=== PATIENT | female | born 1950 | race Caucasian/White ===

== ENCOUNTER → 2017-06-16 | Outpatient (CLI) | payer OTHER ==
[~2017-06-16] MED LIST: ATEN25TA PO; ATOR10TA9 PO; BACLOFEN; BACLOFEN PUMP; CARI350T PO; CHOLESTEROL PILL; CLONIDINE; CLONIDINE PUMP; DILAUDID; DILAUDID PUMP; LISI40TA PO; OXYC-307 PO; OXYC5TAB2 PO
== END | disposition home or self-care (01) ==
LOC: CFH 16:04
PROVIDERS: ATTEND Nurse Practitioner Family
DX: J44.9 Chronic obstructive pulmonary disease, unspecified (principal); M31.30 Wegener's granulomatosis without renal involvement; J45.40 Moderate persistent asthma, uncomplicated
CPT/HCPCS: 71046

== ENCOUNTER → 2018-07-12 | Outpatient (CLI) | payer MEDICARE ==
[2018-07-12 09:06] LABS: BASOPHILS # (AUTO) 0.05 x10^3/uL (0-0.1); BASOPHILS % (AUTO) 1 % (0-1); EOSINOPHILS % (AUTO) 6 % (1-7); LYMPHOCYTES # (AUTO) 1.65 x10^3/uL (1-3.4); LYMPHOCYTES % (AUTO) 26 % (22-44); MD NO; MEAN CORPUSCULAR HEMOGLOBIN 29.1 pg (27.0-34.8); MEAN CORPUSCULAR HGB CONC 32.7 g/dL (32.4-35.8); MEAN CORPUSCULAR VOLUME 88.9 fL (80-100); MEAN PLATELET VOLUME 7.1 fL (7.4-10.4); MONOCYTES # (AUTO) 0.39 x10^3/uL (0.2-0.8); MONOCYTES % (AUTO) 6 % (2-9); NEUTROPHILS % (AUTO) 62 % (42-75); PLATELET COUNT 336 x10^3/uL (130-400); RED BLOOD COUNT 4.55 x10^6/uL (3.82-5.3); RED CELL DISTRIBUTION WIDTH 13.3 % (9.6-15.2)
[2018-07-12 09:17] LABS: ALANINE AMINOTRANSFERASE 18 U/L (12-78); ALBUMIN 3.6 g/dL (3.4-5.0); ANION GAP 5 mmol/L (5-15); CALCIUM 8.8 mg/dL (8.5-10.1); CHLORIDE 109 mmol/L (98-107); CREATININE 0.96 mg/dL (0.55-1.02)
[2018-07-12 09:19] LABS: ALKALINE PHOSPHATASE 114 U/L (45-117); BILIRUBIN,TOTAL 0.6 mg/dL (0.2-1.0); TOTAL PROTEIN 8.3 g/dL (6.4-8.2)
== END | disposition home or self-care (01) ==
LOC: LAB 08:46
PROVIDERS: ATTEND Nurse Practitioner Family
DX: Z01.810 Encounter for preprocedural cardiovascular examination (principal); Z01.812 Encounter for preprocedural laboratory examination; I44.0 Atrioventricular block, first degree; I21.9 Acute myocardial infarction, unspecified
CPT/HCPCS: 36415; 80053; 85025; 93005

== ENCOUNTER 2020-10-22 16:17 | Emergency (ER) | payer MEDICARE ==
[~2020-10-22] VITALS: Ht 172.7 cm; Wt 75.7 kg
[~2020-10-22 16:17] MED LIST changes: -LISI40TA PO; +LISI40TA9 PO; -OXYC-307 PO; +OXYC-380 PO
[2020-10-22] MEDS ORDERED: [UNRECOGNIZED DRUG - REMARK] PO (16:50)
--- NOTE | 2020-10-22 17:02 | NUR ---
PT SITTING UP IN BED, TALKING WITH FRIEND. NAD NOTED AT THIS TIME. NO PAIN NOTED UNLESS PT TAKES A DEEP BREATH, THEN INCREASES TO 4/10. AWAITING ERMD EVAL.
--- NOTE | 2020-10-22 18:01 | NUR ---
PT SITTING UP IN BED WATCHING TELEVISION. NAD NOTED AT THIS TIME. SIDE RAIL UP, CALL LIGHT IN REACH.
[2020-10-22 18:14] LABS: BASOPHILS % (AUTO) 1 % (0-1); EOSINOPHILS % (AUTO) 5 % (1-7); LYMPHOCYTES % (AUTO) 26 % (22-44); MEAN CORPUSCULAR HEMOGLOBIN 29.4 pg (27.0-34.8); MEAN CORPUSCULAR HGB CONC 33.6 g/dL (32.4-35.8); MEAN PLATELET VOLUME 7.8 fL (7.4-10.4); MONOCYTES % (AUTO) 9 % (2-9); NEUTROPHILS % (AUTO) 59 % (42-75); PLATELET COUNT 267 x10^3/uL (130-400); RED BLOOD COUNT 4.28 x10^6/uL (3.82-5.3); RED CELL DISTRIBUTION WIDTH 14.1 % (9.6-15.2)
[2020-10-22 18:26] LABS: ALBUMIN 3.6 g/dL (3.4-5.0); ANION GAP 6 mmol/L (5-15); CALCIUM 8.8 mg/dL (8.5-10.1); CHLORIDE 110 mmol/L (98-107)
[2020-10-22 18:31] LABS: TROPONIN I < 0.015 ng/mL (0.000-0.045)
--- NOTE | 2020-10-22 18:59 | NUR ---
REPORT TO SAMANTHA PRUITT. PT CHART UP FOR RECHECK.
[2020-10-22 19:02] VITALS: BP 124/89
== END 2020-10-22 19:42 | disposition home or self-care (01) ==
LOC: ED 19:35
DX: R07.0 Pain in throat (principal); M54.2 Cervicalgia; R07.89 Other chest pain; I10 Essential (primary) hypertension; E78.5 Hyperlipidemia, unspecified; E78.00 Pure hypercholesterolemia, unspecified; R00.0 Tachycardia, unspecified; G89.29 Other chronic pain; Z87.891 Personal history of nicotine dependence
CPT/HCPCS: 36415; 71045; 80048; 82040; 84484; 85025; 93005; 99285